=== PATIENT | female | born 1980 | race African-American/Black ===

== ENCOUNTER 2017-03-27 01:21 | Emergency (ER) | payer MEDICARE, MEDICAID ==
[~2017-03-27] VITALS: Ht 165.1 cm; Wt 90.7 kg
[~2017-03-27 01:21] MED LIST: FLUCONAZOLE150 MG ORAL; IBUPROFEN600 MG ORAL; KEFLEX500 MG ORAL
[2017-03-27 01:45] VITALS: BP 112/62
--- NOTE | 2017-03-27 02:00 | Emergency Room Report ---
History of Present Illness General Chief Complaint: Behavioral Complaint Source: Patient, Medical Record, EMS Present Illness HPI Is a 36-year-old female who is homeless. She called 911 because she said she felt suicidal. Not suicidal since 2003. No particular plan. Said she is hearing voices. Last psychiatric admission was 2014. Denies any homicidal thoughts. No nausea no vomiting denies alcohol drugs. Allergies: Coded Allergies: NO KNOWN ALLERGIES (Unverified Allergy, Unknown, 12/19/14) Patient History Past Medical History: see triage record, old chart reviewed Past Surgical History: none Family History: none Social History: single Last Menstrual Period: unknown Now: No Immunizations: UTD Reviewed Nursing Documentation: PMH: Agreed, PSxH: Agreed Nursing Documentation-PMH Past Medical History: No Stated History Review of Systems ENT: Denies: sore throat Cardiovascular: Denies: chest pain, palpitations Gastrointestinal/Abdominal: Denies: nausea, vomiting, diarrhea Musculoskeletal: Denies: back problems Skin: Denies: rash Neurological: Denies: CASTRO, seizures All Other Systems: negative except mentioned in HPI Physical Exam Vital Signs Date Time Temp Pulse Resp B/P (MAP) Pulse Ox O2 Delivery O2 Flow Rate FiO2 03/27/17 01:20 16 Room Air vitals is normal Sp02 EP Interpretation: reviewed, normal General Appearance: alert/responsive, no apparent distress, non-toxic Head: normocephalic, atraumatic Eyes: PERRL, EOMI ENT: oropharynx normal Neck: supple/symm/no masses Respiratory: effort normal, no rhonchi, no wheezing Cardiovascular: no murmur, gallop, rub Gastrointestinal: non-tender, no mass, non-distended, no rebound/guarding, normal bowel sounds Musculoskeletal: gait & station normal Neurologic: oriented x3, sensory intact, motor strength/tone normal Skin: no rash, normal palpation Medical Decision Making Diagnostic Impression: Primary Impression: Psychosis Qualified Codes: F23 - Brief psychotic disorder Additional Impression: Suicidal ideations ER Course Patient with psychosis and suicidal thought. She called 911, police came by and evaluate her. Because she said she is suicidal, they placed her on a 5150 hold. she is medically cleared for psychiatric placement. Lab Results Impression labs normal. Last Vital Signs Date Time Temp Pulse Resp B/P (MAP) Pulse Ox O2 Delivery O2 Flow Rate FiO2 03/27/17 01:20 16 Room Air Status: improved Disposition: XFER TO PSYCH HOSP/UNIT Condition: Stable Referrals: NOT CHOSEN ROSA M/,REFERRING (PCP) ROGERIO VELAZQUEZ M.D. Mar 27, 2017 02:00
[2017-03-27 02:35] LABS: EOSINOPHILS % (AUTO) 2.5 % (0.0-3.0); HEMATOCRIT 32.7 % (37.0-47.0); HEMOGLOBIN 10.6 G/DL (12.0-16.0); LYMPHOCYTES % (AUTO) 43.1 % (20.0-45.0); MEAN CORPUSCULAR VOLUME 78 FL (80-99); MONOCYTES % (AUTO) 7.4 % (1.0-10.0); NEUTROPHILS % (AUTO) 46.1 % (45.0-75.0); PLATELET COUNT 251 K/UL (150-450); RED BLOOD COUNT 4.17 M/UL (4.20-5.40); RED CELL DISTRIBUTION WIDTH 14.3 % (11.6-14.8)
[2017-03-27 02:46] LABS: APPEARANCE,URINE CLEAR; BILIRUBIN, URINE NEGATIVE (NEGATIVE); GLUCOSE, URINE (UA) NEGATIVE (NEGATIVE); KETONES,URINE NEGATIVE (NEGATIVE); LEUKOCYTE ESTERASE ,URINE NEGATIVE (NEGATIVE); NITRITE,URINE NEGATIVE (NEGATIVE); PH,URINE 6 (4.5-8.0); PROTEIN,URINE NEGATIVE (NEGATIVE); UROBILINOGEN,URINE 1 MG/DL (0.0-1.0)
[2017-03-27 02:47] LABS: COLOR,URINE YELLOW
[2017-03-27 02:50] LABS: ANION GAP 5 mmol/L (5-15); BLOOD UREA NITROGEN 9 mg/dL (7-18); CALCIUM 8.9 MG/DL (8.5-10.1); CARBON DIOXIDE 27 MMOL/L (21-32); CHLORIDE 106 MMOL/L (98-107); CREATININE 0.8 MG/DL (0.55-1.30); POTASSIUM 3.9 MMOL/L (3.5-5.1); SODIUM 138 MMOL/L (136-145)
[2017-03-27 02:54] LABS: ALANINE AMINOTRANSFERASE 7 U/L (12-78); ALBUMIN/GLOBULIN RATIO 0.8 (1.0-2.7); ALKALINE PHOSPHATASE 79 U/L (46-116); ASPARTATE AMINO TRANSFERASE 14 U/L (15-37); BILIRUBIN,TOTAL 0.1 MG/DL (0.2-1.0)
[2017-03-27 05:00] VITALS: BP 119/66
[2017-03-27 09:03] VITALS: BP 107/60
[2017-03-27] MEDS ORDERED: Ketorolac 60mg Inj IM ONE (12:30)
[2017-03-27 16:16] VITALS: BP 126/74
[2017-03-27 18:55] VITALS: BP 104/55
[2017-03-27 19:56] VITALS: BP 104/55
== END 2017-03-27 20:05 ==
LOC: EDBD 01:21 → EMR 01:46
DX: F29 Unspecified psychosis not due to a substance or known physiological condition (principal); R45.851 Suicidal ideations
CPT/HCPCS: 36415; 80053; 80307; 81003; 81025; 85025; 96372; 99285; G0480; 80329

== ENCOUNTER 2017-07-22 21:37 | Emergency (ER) | payer MEDICARE, MEDICAID ==
[~2017-07-22] VITALS: Ht 165.1 cm; Wt 86.2 kg
[~2017-07-22 21:37] MED LIST changes: +EXCEDRIN MIGRA1 EAC1 PO
[2017-07-22] MEDS ORDERED: IBUPROFEN600 MG ORAL (21:44)
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
[2017-07-22 21:45] VITALS: BP 130/70
[2017-07-22 21:54] VITALS: BP 130/70
== END 2017-07-22 22:00 | disposition home or self-care (01) ==
LOC: EDBD 21:37 → EMR 21:55
DX: R52 Pain, unspecified (principal)
CPT/HCPCS: 99283

== ENCOUNTER 2017-10-18 17:01 | Emergency (ER) | payer MEDICARE, MEDICAID ==
[~2017-10-18] VITALS: Ht 162.6 cm; Wt 81.6 kg
[2017-10-18] MEDS ORDERED: Norco 5mg/325mg tab ORAL ONE (17:30)
--- NOTE | 2017-10-18 17:32 | Emergency Room Report ---
History of Present Illness General Chief Complaint: General Complaint Source: Patient Present Illness Allergies: Coded Allergies: NO KNOWN ALLERGIES (Unverified Allergy, Unknown, 12/19/14) Patient History Last Menstrual Period: 10/12/2017 Nursing Documentation-[facility] Past Medical History: No History, Except For Physical Exam Vital Signs Date Time Temp Pulse Resp B/P (MAP) Pulse Ox O2 Delivery O2 Flow Rate FiO2 10/18/17 17:04 98.1 90 16 143/87 99 Room Air 98.1 Medical Decision Making PA Attestation Dr. Coley is my supervising Physician whom patient management has been discussed with. Diagnostic Impression: Primary Impression: Cellulitis Qualified Codes: L03.116 - Cellulitis of left lower limb Additional Impression: Medication refill Last Vital Signs Date Time Temp Pulse Resp B/P (MAP) Pulse Ox O2 Delivery O2 Flow Rate FiO2 10/18/17 17:04 98.1 90 16 143/87 99 Room Air 98.1 Disposition: HOME, SELF-CARE Condition: Stable Patient Instructions: Cellulitis, [id number] Additional Instructions: Take medications as directed. Follow up with a Primary Care Provider in 3-5 days, even if your symptoms have resolved. --Please review list of primary care clinics, if you do not already have a primary care provider Return sooner to ED if new symptoms occur, or current symptoms become worse. - Please note that this Emergency Department Report was dictated using [employer] dra[employer] technology software, occasionally this can lead to erroneous entry secondary to interpretation by the dictation equipment. Apple Ortiz Oct 18, 2017 17:32
[2017-10-18] MEDS: Tetanus/Diptheria/Pertussis Vaccine 0.5ml Syr IM ONE ×2 (17:59→18:07)
[2017-10-18 18:03] VITALS: BP 140/76
[2017-10-18] MEDS ORDERED: IBUPROFEN600 MG ORAL (18:59)
[2017-10-18] MEDS ORDERED: CLINDAMYCIN HC300 MG ORAL (18:59)
[2017-10-18] MEDS ORDERED: INVEGA6 MG PO (19:02)
[2017-10-18] MEDS ORDERED: BACTRIM DS TAB1 EAC1 ORAL (19:02)
[2017-10-18] MEDS ORDERED: CEPHALEXIN500 MG ORAL (19:02)
[2017-10-18 19:34] VITALS: BP 140/76
== END 2017-10-18 19:45 | disposition home or self-care (01) ==
LOC: EDBD 17:01 → EMR 19:35
DX: L03.116 Cellulitis of left lower limb (principal)
CPT/HCPCS: 90471; 90715; 99282

== ENCOUNTER 2018-03-13 11:29 | Emergency (ER) | payer MEDICARE, MEDICAID ==
[~2018-03-13] VITALS: Ht 167.6 cm; Wt 95.3 kg
[~2018-03-13 11:29] MED LIST changes: +BACTRIM DS TAB1 EAC1 ORAL; +CEPHALEXIN500 MG ORAL; +CLINDAMYCIN HC300 MG ORAL; +INVEGA6 MG PO
[2018-03-13] MEDS ORDERED: NKM (11:39)
[2018-03-13 11:40] VITALS: BP 107/70
--- NOTE | 2018-03-13 11:43 | NUR ---
ED Nurse Note: A/Ox4. Ambulated in to ER due to abscess on right jaw x 3 days. c/o pain 11/30. No trauma noted.
[2018-03-13] MEDS ORDERED: ACETAMINOPHEN-1 EAC1 ORAL (12:11)
[2018-03-13] MEDS ORDERED: HIBICLENS118 ML TP (12:11)
[2018-03-13] MEDS ORDERED: AMOXICILLIN500 MG ORAL (12:11)
--- NOTE | 2018-03-13 12:11 | Emergency Room Report ---
History of Present Illness General Chief Complaint: Skin Rash/Abscess Source: Medical Record Present Illness HPI 37-year-old female patient presents the ER complaining of dental abscess times 3 days. Reports has been increasing in size since that time. Reports pain in teeth at site of infection. Reports increases in size after eating food such as potatoes. Reports has drained. Denies fever, chest pain, shortness of breath, vomiting, abdominal pain. Denies history of diabetes. Speaking full sentences, denies trismus or neck pain. States has been taking ibuprofen without relief of symptoms. Denies other aggravating or relieving factors. Allergies: Coded Allergies: NO KNOWN ALLERGIES (Unverified Allergy, Unknown, 12/19/14) Patient History Past Medical History: see triage record Last Menstrual Period: 02/28/18 Reviewed Nursing Documentation: PMH: Agreed; PSxH: Agreed Nursing Documentation-PMH Past Medical History: No History, Except For Hx Neurological Problems: No - MIGRAINE Review of Systems All Other Systems: negative except mentioned in HPI Physical Exam Vital Signs Date Time Temp Pulse Resp B/P (MAP) Pulse Ox O2 Delivery O2 Flow Rate FiO2 03/13/18 11:37 98.4 106 18 107/70 95 Room Air Sp02 EP Interpretation: reviewed, normal General Appearance: well appearing, no apparent distress, alert, GCS 15, non- toxic Head: normocephalic, atraumatic, other - right lower mandible facial swelling Eyes: bilateral eye normal inspection, bilateral eye PERRL ENT: hearing grossly normal, normal pharynx, no angioedema, normal voice, uvula midline, moist mucus membranes, other - Right lower gum: Erythema edema, open abscess, able to express pus, no active draining broken teeth noted, tooth tender to palpation,; dental caries noted Neck: full range of motion Respiratory: lungs clear, normal breath sounds, no rhonchi, no respiratory distress, no accessory muscle use, no wheezing, speaking full sentences Cardiovascular #1: regular rate, rhythm, no edema Neurologic: alert, oriented x3, responsive, motor strength/tone normal, sensory intact Psychiatric: mood/affect normal Skin: no rash Medical Decision Making PA Attestation Dr. Hagen is my supervising Physician whom patient management has been discussed with. Diagnostic Impression: Primary Impression: Dental abscess ER Course Pt. presents to the ED c/o dental infection. Ddx considered but are not limited to cellulitis, abscess, dental caries, gingivitis, salivary gland infection. Vital signs: are WNL, pt. is afebrile ED INTERVENTIONS: Pain medication provided in the ER. Nontoxic appearing, speaking full sentences, no active draining, mild edema, no trismus or vision changes. Physical exam shows draining dental abscess, does not require I&D in the ER, will provide patient with antibiotics. Informed patient to follow-up with dentist in 1-2 days. Will discharge home with Rx for antibiotics, chlorhexidine mouthwash and pain medication. Side effects of pain medication clue drowsiness, do not take prior to drinking, driving, operating heavy machinery. Take regular Tylenol following completion of Tylenol#3. Apply ice for swelling symptoms. Will provide abx for infection to cover for possible infection. provided with contact information for dentists. F/u with PCP and dentist for further treatment. ER precautions given DISCHARGE: -Rx provided for Amoxicillin -Rx provided for Tylenol No. 3. CURES reviewed, do not take prior to drinking, driving, operating heavy machinery. Take Tylenol following completion of medication. Rx provided for chlorhexidine mouthwash At this time pt. is stable for d/c to home. Patient is resting comfortably, in no acute distress, nontoxic appearing, talking and smiling without difficulty. Will provide printed patient care instructions and any necessary prescriptions. Care plan and follow up instructions have been discussed with the patient prior to discharge. Patient instructed to follow-up with primary care provider in 2 - 3 days. Followup with dentist. Patient questions asked and answered. Patient reports understanding and agreement to treatment plan. ER precautions given. Patient instructed to return to ER immediately for any new or worsening of symptoms including but not limited to fever, worsening of pain symptoms, worsening of erythema, red streaking. - Please note that this Emergency Department Report was dictated using [employer]utive administrative assistant technology software, occasionally this can lead to erroneous entry secondary to interpretation by the dictation equipment. Last Vital Signs Date Time Temp Pulse Resp B/P (MAP) Pulse Ox O2 Delivery O2 Flow Rate FiO2 03/13/18 11:40 98.4 106 18 107/70 95 Room Air Status: improved Disposition: HOME, SELF-CARE Condition: Stable Scripts Chlorhexidine Gluconate* (HIBICLENS*) 118 Ml Liquid 118 ML TP BID, #118 ML Prov: Lake Mcginnis 03/13/18 Amoxicillin* (AMOXIL*) 500 Mg Capsule 500 MG ORAL EVERY 8 HOURS for 7 Days, #21 CAP Prov: Lake Mcginnis 03/13/18 Acetaminophen With Codeine (T#3) (TYLENOL #3 TAB*) Y Tab 1 TAB ORAL Q6HR PRN for For Pain, #8 TAB Prov: Lake Mcginnis 03/13/18 Patient Instructions: Dental Abscess, [id number] Additional Instructions: Follow-up with dentist in 1-2 days. Followup with primary care provider in 3 -5 days. Take medications as directed. Patient questions asked and answered. ER precautions given, patient instructed to return to ER immediately for any new or worsening of symptoms. Lake Mcginnis Mar 13, 2018 12:11
[2018-03-13] MEDS ORDERED: Acetaminophen 500mg (ES) tab ORAL ONE (12:15)
[2018-03-13 12:23] VITALS: BP 108/71
--- NOTE | 2018-03-13 12:25 | NUR ---
ED Nurse Note:pt. was cleared for d/c by ER PA she received d/c instructions with prescriptions and left ER with steady gait
== END 2018-03-13 13:02 | disposition home or self-care (01) ==
LOC: EMR 12:15
DX: K04.7 Periapical abscess without sinus (principal)
CPT/HCPCS: 99282